=== PATIENT | male | born 1960 | race Caucasian/White ===

== ENCOUNTER 2020-07-05 17:56 | Emergency (ER) | payer OTHER ==
[2020-07-05 18:08] VITALS: RESP 18
[2020-07-05 18:31] LABS: Basophils # (A) 0.1 k/uL (0-0.2); Basophils % (A) 1 %; Eosinophils # (A) 0.2 k/uL (0-0.7); Eosinophils % (A) 2 %; HCT 38.2 % (39.0-53.0); HGB 12.9 gm/dL (13.0-17.5); Lymphocytes # (A) 2.8 k/uL (1.0-4.8); Lymphocytes % (A) 23 %; MCH 31.5 pg (25.0-35.0); MCHC 33.9 g/dL (31.0-37.0); MCV 92.9 fL (80.0-100.0); Mean Platelet Volume 7.5; Monocytes # (A) 0.8 k/uL (0-1.0); Monocytes % (A) 6 %; Neutrophils # (A) 8.2 k/uL (1.3-7.7); Neutrophils % (A) 66 %; Platelet Count 257 k/uL (150-450); RBC 4.11 m/uL (4.30-5.90); RDW 13.6 % (11.5-15.5); WBC 12.3 k/uL (3.8-10.6)
[2020-07-05 18:41] LABS: Albumin 3.7 g/dL (3.5-5.0); Calcium 8.5 mg/dL (8.4-10.2); Potassium 3.6 mmol/L (3.5-5.1); Total Bilirubin 0.3 mg/dL (0.2-1.3); Total Protein 6.7 g/dL (6.3-8.2)
[2020-07-05 18:45] LABS: Prothrombin Time 10.4 sec (9.0-12.0)
--- NOTE | 2020-07-05 18:49 | XR ---
EXAMINATION: XR chest 1V portable - 2 supine views DATE AND TIME: 07/05/2020 6:33 PM CLINICAL INDICATION: PHH; trauma TECHNIQUE: 2 supine radiographs were obtained COMPARISON: None FINDINGS: There is moderate silhouetting of the pulmonary vasculature by a fine reticular pattern of increased attenuation bilaterally and symmetrically, suggesting interstitial phase pulmonary edema. The pleural spaces are negative as seen. It is noted, however, that supine radiography cannot exclude pneumothorax or pneumoperitoneum. The cardiac silhouette is not enlarged. The remainder of the mediastinal silhouette is nonspecific. The skeletal structures and soft tissues are negative for acute findings. IMPRESSION: Findings suggest interstitial phase pulmonary edema.
--- NOTE | 2020-07-05 18:50 | XR ---
PROCEDURE: XR pelvis AP view - 3V DATE AND TIME: 07/05/2020 6:33 PM CLINICAL INDICATION: PHH; Trauma/pain TECHNIQUE: Department protocol COMPARISON: None FINDINGS: There is no fracture or malalignment. The soft tissues are unremarkable. IMPRESSION: NO ACUTE PROCESS.
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
[2020-07-05] MEDS ORDERED: HYDROmorphone 0.5 MG/0.5 ML SYRINGE IVP STA (20:15)
[2020-07-05 20:25] VITALS: BP 137/93; PULSE 84; TEMP 97.7
== END 2020-07-05 20:54 | disposition other institution (70) ==
LOC: EC 17:56
DX: S02.2XXA Fracture of nasal bones, initial encounter for closed fracture (principal); F12.90 Cannabis use, unspecified, uncomplicated; R53.1 Weakness; F10.129 Alcohol abuse with intoxication, unspecified; V19.9XXA Pedal cyclist (driver) (passenger) injured in unspecified traffic accident, initial encounter; Y93.55 Activity, bike riding; Z90.49 Acquired absence of other specified parts of digestive tract
CPT/HCPCS: 36415; 93005; 86900; 86901; 80053; 85025; 85610; 85730; 86850; 72170; 71045; 72125; 70486; 70450; 99285; 96374; G0480; J1170; 80320

== ENCOUNTER → 2021-12-26 | Outpatient (CLI) | payer OTHER ==
--- NOTE | 2021-12-27 08:43 | CT ---
EXAMINATION TYPE: CT chest w con CT DLP: 319 mGycm, Automated exposure control for dose reduction was used. DATE OF EXAM: 12/26/2021 6:06 PM COMPARISON: None CLINICAL INDICATION:Male, 61 years old with history of R16.0 LIVER MASS, Liver mass TECHNIQUE: Multiple axial images were obtained through the chest. Sagittal and coronal reformats were created for review. Contrast used:100cc mL of Isovue 370 with IV Contrast Oral contrast used: none. FINDINGS: LUNGS/ PLEURA: Scattered peripheral reticulation noted. Mild paraseptal emphysema changes. Right midd le lobe 4 mm nodule image 44 series 4. No evidence focal consolidation, pneumothorax or pleural effus ion. AIRWAY: Patent and unremarkable. HEART: Size within normal limits. MEDIASTINUM: No gross evidence of adenopathy. Right low paratracheal lymph node measuring up to 14 mm in short axis and right upper paratracheal lymph node measuring 10 mm in short axis. VASCULATURE: No aortic aneurysm. MUSCULOSKELETAL: No acute osseous abnormalities, mild multilevel disc degeneration changes are seen t hroughout the spine. No suspicious osseous lesions identified. SOFT TISSUES/LYMPH NODES: Unremarkable. LOWER NECK: No significant findings. UPPER ABDOMEN: Multiple hepatic masses are seen throughout the liver the largest in the right hepatic lobe near the dome measuring up to 4.8 cm. Masslike area within the pancreatic tail/body measuring 5 .8 x 4.2 x 5.3 cm. IMPRESSION: 1. Right middle lobe 4 mm pulmonary nodule. 2. There is a mass within the pancreatic body/tail measuring up to 5.8 cm along with multiple hepatic masses consistent with likely primary malignancy within the pancreas and metastatic disease to the l iver. 3. At least 2 mediastinal lymph nodes which are borderline enlarged. These are nonspecific correlatio n with PET/CT as clinically warranted. 4. Scattered reticulation along the peripheral lungs could represent sequela prior infection versus e kofi interstitial lung disease.
== END | disposition home or self-care (01) ==
LOC: RADCTMAIN 17:40
PROVIDERS: ATTEND Internal Medicine
DX: R16.0 Hepatomegaly, not elsewhere classified (principal); R59.0 Localized enlarged lymph nodes; R91.1 Solitary pulmonary nodule
CPT/HCPCS: 71260; Q9967

== ENCOUNTER → 2022-02-04 | Outpatient (CLI) | payer OTHER ==
--- NOTE | 2022-02-04 13:46 | XR ---
EXAMINATION TYPE: XR chest 2V DATE OF EXAM: 02/04/2022 COMPARISON: Chest x-ray July 05, 2020. CT chest December 26, 2021. HISTORY: Pancreatic neoplasm. Positive PPD skin test. TECHNIQUE: Frontal and lateral views of the chest are obtained. FINDINGS: Background chronic emphysematous and peripheral reticular fibrotic change. There is no susp icious focal air space opacity, pleural effusion, or pneumothorax seen. The cardiac silhouette size is stable and within normal limits. The osseous structures are intact. IMPRESSION: Chronic changes without acute pulmonary process.
== END | disposition home or self-care (01) ==
LOC: RADXRMAIN 13:14
PROVIDERS: ATTEND Internal Medicine
DX: C25.1 Malignant neoplasm of body of pancreas (principal); J98.4 Other disorders of lung
CPT/HCPCS: 71046

== ENCOUNTER 2022-02-10 08:37 | Day surgery (SDC) | payer OTHER ==
[2022-02-10] MEDS ORDERED: ALPRAZolam 0.5 MG TAB PO PRN (09:17)
[2022-02-10] MEDS ORDERED: HYDROmorphone 0.5 MG/0.5 ML SYRINGE IVP PRN (09:17)
[2022-02-10 09:26] LABS: Mean Platelet Volume 8.6; Platelet Count 416 k/uL (150-450)
[2022-02-10 09:38] VITALS: RESP 16
[2022-02-10 09:47] LABS: INR 1.2 (<1.2); Prothrombin Time 12.6 sec (9.0-12.0)
[2022-02-10] MEDS ORDERED: GELATIN SPONGE,ABSORB (LARGE) 1 EACH SPONGE TOPICAL STA (10:09)
--- NOTE | 2022-02-10 11:05 | US ---
EXAMINATION TYPE: US biopsy liver DATE OF EXAM: 02/10/2022 COMPARISON: NONE HISTORY: Liver mass Findings: The procedure was explained to the patient. The risks, complications, benefits, and altern atives were discussed and any questions were answered. Informed consent was obtained. Patient was p laced supine on the percent table and prepped and draped in the usual sterile fashion. All elements of maximal barrier and sterile technique utilized. Utilizing CT guidance, an 18 gauge core biopsy needle access into the left lobe of the liver is was achieved and a single 18 gauge core sample was obtained. The patient was stable throughout the proce dure and remained stable upon discharge. IMPRESSION: 1. Successful 18 gauge core biopsy of the liver for hepatic mass.
[2022-02-10 18:49] VITALS: PULSE 100
[2022-02-10 18:52] VITALS: BP 147/89
== END 2022-02-10 14:32 | disposition home or self-care (01) ==
LOC: RADPROMAIN 08:37
PROVIDERS: ATTEND Internal Medicine
DX: C80.1 Malignant (primary) neoplasm, unspecified (principal); C78.7 Secondary malignant neoplasm of liver and intrahepatic bile duct
CPT/HCPCS: 36415; 47000; 76942; 85049; 85610; 88307; 88341; 88342

== ENCOUNTER → 2022-02-28 | Outpatient (CLI) | payer OTHER ==
--- NOTE | 2022-03-03 06:20 | PE ---
EXAMINATION TYPE: PET CT fusion skull to thigh DATE OF EXAM: 02/28/2022 COMPARISON: NONE AT THIS INSTITUTION. HISTORY: Newly diagnosed pancreatic cancer. Recent abdominal CT. TECHNIQUE: Following the intravenous administration of 10.72 mCi of F-18 FDG, whole body images are performed from the skull base to the midthigh. Images are reviewed on the computer in the coronal, a xial, and sagittal planes. Reconstructed rotating images are created on independent workstation and reviewed on the computer. A localization and attenuation correction CT is performed in conjunction with the PET scan. Blood glucose level equals 97. SCAN: Initial Scan FINDINGS: SKULL BASE AND NECK: No areas of abnormal hypermetabolic uptake. CHEST, MEDIASTINUM, AND HILAR REGION: No areas of abnormal hypermetabolic uptake. ABDOMEN AND PELVIS: There is oval mass in the distal pancreatic body and tail measuring approximately 7.1 x 4.8 cm with max SUV of 3.88 on axial image 146. Hepatomegaly is present. There are multiple heterogeneous hypodense masses with abnormal hypermetabol ic uptake scattered throughout the liver. One of the largest in the anterior right hepatic lobe measu res 9.1 cm long axis axial image 136, Max SUV is 6.81 of this lesion on axial image 129. Lesion in th e deep posterior right hepatic lobe has max SUV of 7.43 on axial image 130 and measures roughly 7.2 c m in long axis. Mild nonspecific right-sided bowel uptake. Normal excretion. No additional areas of abnormal hypermet abolic uptake identified. OSSEOUS STRUCTURES: No areas of abnormal hypermetabolic uptake. OTHER CT: At least moderate underlying emphysematous changes are present. Cholecystectomy clips are seen. There is narrow neck umbilical hernia containing fat and fluid. There is moderate to large amount of free fluid in the pelvis axial image 221. Moderate to advanced disc space narrowing lumbosacral junction is present. IMPRESSION: There is distal pancreatic neoplasm with hepatic metastatic disease as detailed above.
== END | disposition home or self-care (01) ==
LOC: RADPETMAIN 13:33
PROVIDERS: ATTEND Internal Medicine
DX: C25.1 Malignant neoplasm of body of pancreas (principal); C78.7 Secondary malignant neoplasm of liver and intrahepatic bile duct
CPT/HCPCS: 78815; A9552

== ENCOUNTER 2022-05-05 17:33 | Observation (INO) | payer OTHER ==
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
[2022-05-05 18:34] LABS: Albumin 2.7 g/dL (3.5-5.0); Calcium 7.4 mg/dL (8.4-10.2); Potassium 3.7 mmol/L (3.5-5.1); Total Bilirubin 4.3 mg/dL (0.2-1.3); Total Protein 6.8 g/dL (6.3-8.2)
[2022-05-05] MEDS ORDERED: NALOXONE 0.4 MG/ML 1 ML VIAL IV PRN (18:35)
[2022-05-05 18:36] LABS: INR 1.4 (<1.2); Prothrombin Time 14.4 sec (9.0-12.0)
[2022-05-05 18:38] LABS: Anisocytosis Moderate; Basophils # (A) 0.1 k/uL (0-0.2); Basophils % (A) 0 %; Eosinophils # (A) 0.2 k/uL (0-0.7); Eosinophils % (A) 1 %; HGB 9.1 gm/dL (13.0-17.5); Lymphocytes # (A) 1.2 k/uL (1.0-4.8); Lymphocytes % (A) 4 %; MCH 32.3 pg (25.0-35.0); MCHC 32.4 g/dL (31.0-37.0); MCV 99.6 fL (80.0-100.0); Macrocytosis Moderate; Mean Platelet Volume 10.3; Monocytes # (A) 0.9 k/uL (0-1.0); Monocytes % (A) 3 %; Neutrophils % (A) 91 %; Platelet Count 190 k/uL (150-450); RBC 2.81 m/uL (4.30-5.90); RDW 20.2 % (11.5-15.5); WBC 27.5 k/uL (3.8-10.6)
[2022-05-05] MEDS ORDERED: SODIUM CHLORIDE 0.9% 1,000 ML IV SCH (18:45)
[2022-05-05 19:10] LABS: Toxic Granulation Present
[2022-05-06] MEDS ORDERED: ONDANSETRON ODT 8 MG TAB.RAPDIS PO PRN (06:32)
[2022-05-06] MEDS ORDERED: PANTOPRAZOLE 40 MG TABLET PO SCH (07:00)
[2022-05-06 07:53] VITALS: RESP 16
[2022-05-06] MEDS ORDERED: FOLIC ACID 1 MG TAB PO SCH (08:00)
[2022-05-06] MEDS: SODIUM BICARBONATE TAB 650 MG TAB PO SCH ×2 (08:41→15:19)
--- NOTE | 2022-05-06 09:02 | US ---
EXAMINATION TYPE: US abdomen limited DATE OF EXAM: 05/06/2022 COMPARISON: NONE CLINICAL HISTORY: assess for fluid pocket please. Ascites Technique bilateral ultrasound for ascites. FINDINGS: Bilateral apical fluid. Fluid pocket visualized. IMPRESSION: Moderate ascites.
[2022-05-06] MEDS: ALBUMIN HUMAN 25% 50 ML in EMPTY BAG 1 BAG IVPB SCH ×2 (11:56→13:11)
--- NOTE | 2022-05-06 12:01 | US ---
Ultrasound-guided paracentesis. DATE OF EXAM: 05/06/2022 CLINICAL HISTORY: Ascites The procedure was discussed with the patient. The risks, complications, benefits, and alternatives we re discussed and any questions were answered. Informed consent was obtained. The patient was placed s upine on the ultrasound table and prepped and draped in the usual sterile fashion. All elements of maximal barrier technique were utilized. Under ultrasound guidance, access into the right lower quadrant was obtained, via the paracentesis catheter system and direct ultrasound guidanc e. Approximately 7.5 liters of straw-colored fluid was removed. The patient was stable throughout the pr ocedure and remained stable upon discharge from Department of Radiology. IMPRESSION: Successful paracentesis under ultrasound guidance.
[2022-05-06 13:20] VITALS: BP 114/82; PULSE 98; TEMP 97.4
--- NOTE | 2022-05-06 14:49 | P.HPIM ---
History of Present Illness H&P Date: 05/06/22 This is a 61-year-old male who presented to the emergency department with abdominal distention and pain with ascites. Patient follows with Dr. Cast oncology in the outpatient setting with a past medical history of pancreatic cancer and also liver and lung mass found on CT, occasionally drinks alcohol socially and has used marijuana in the past. Patient denies smoking. Interventional radiology was consulted from the ER as there is moderate ascites noted on abdominal ultrasound and plan was for palliative paracentesis with returning home on hospice services. Patient does not want to follow with [facility] and has been following with [facility] in the outpatient setting. Case management following and this has been arranged. Patient will have paracentesis and discharge home later this afternoon. Review Of Systems: Constitutional: No fever, no chills, no night sweats. Reports weight change. Reports weakness, fatigue or lethargy. No daytime sleepiness. EENT: No headache. No blurred vision or double vision, no loss of vision. No loss of Hearing, no ringing in the ears, no dizziness. No nasal drainage or congestion. No epistaxis. No sore throat. Lungs: No shortness of breath, cough, no sputum production. No wheezing. Cardiovascular: No chest pain, no lower extremity edema. No palpitations. No paroxysmal nocturnal dyspnea. No orthopnea. No lightheadedness or dizziness. No syncopal episodes. Abdominal: Reports abdominal pain. No nausea, vomiting. No diarrhea. No constipation. No bloody or tarry stools.. No loss of appetite. Genitourinary: No dysuria, increased frequency, urgency. No urinary retention. Musculoskeletal: No myalgias. No muscle weakness, no gait dysfunction, no frequent falls. No back pain. No neck pain. Integumentary: No wounds, no lesions. No rash or pruritus. No unusual bruising. No change in hair or nails. Neurologic: No aphasia. No facial droop. No change in mentation. No head injury. No headache. No paralysis. No paresthesia. Psychiatric: No depression. No anxiety. No mood swings. Endocrine: No abnormal blood sugars. No weight change. No excessive sweating or thirst. No cold intolerance. PHYSICAL EXAMINATION: GENERAL: The patient is alert and oriented x4, thin built, cachectic, muscle wasting, ill-appearing HEENT: Pupils are round and equally reacting to light. EOMI. no scleral icterus. No conjunctival pallor. Normocephalic, atraumatic. No pharyngeal erythema. No thyromegaly. CARDIOVASCULAR: S1 and S2 muffled PULMONARY: diminished breath sounds bilaterally with no wheezing or rhonchi noted. ABDOMEN: soft. tender on exam. obese. distended, tympanic, normoactive bowel sounds. No palpable organomegaly. MUSCULOSKELETAL: No joint swelling or deformity. EXTREMITIES: No cyanosis, clubbing, or pedal edema. NEUROLOGICAL: Gross neurological examination did not reveal any focal deficits. SKIN: No rashes. 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 Will transfuse albumin prior to discharge Case management following arranging for home with hospice with [facility] and this is being arranged for home today. Patient was recently diagnosed with metastatic squamous cell carcinoma on liver biopsy and was told he was hospice appropriate by oncology Overall prognosis is poor and guarded and patient is agreeable to going home with hospice Patient will discharge today The impression and plan of care has been dictated by Shawna Donald, nurse practitioner as directed. Dr. Macho MD I have performed a history and examination and MDM of this patient, discussed the same with the dictator, and agree with the dictator's assessment and plan as written ,documented as a scribe. Based on total visit time, I have performed more than 50% of the visit. Any additional findings or plans will be noted. Past Medical History Past Medical History: No Reported History Additional Past Medical History / Comment(s): no reported history but pancreatic, liver and lung mass are found on CT and patient is being worked up for liver mass biopsy History of Any Multi-Drug Resistant Organisms: None Reported Past Surgical History: Cholecystectomy Past Anesthesia/Blood Transfusion Reactions: No Reported Reaction Smoking Status: Never smoker Medications and Allergies Home Medications Medication Instructions Recorded Confirmed Type RX: Folic Acid 1 mg PO DAILY@0800 05/05/22 05/05/22 History RX: Mirtazapine [Remeron] 15 mg PO HS@2000 05/05/22 05/05/22 History RX: Omeprazole 20 mg PO BID@0700,1700 05/05/22 05/05/22 History RX: Ondansetron Odt [Zofran ODT] 8 mg PO Q8H PRN 05/05/22 05/05/22 History RX: Sodium Bicarbonate Tab 650 mg PO QID 05/05/22 05/05/22 History Allergies Allergy/AdvReac Type Severity Reaction Status Date / Time No Known Allergies Allergy Verified 05/05/22 19:10 Physical Exam Vitals: Vital Signs Temp Pulse Pulse Resp BP BP Pulse Ox 05/06/22 07:52 98 F 102 H 16 114/82 100 05/06/22 01:36 97.8 F 105 H 20 109/76 98 05/05/22 22:54 97.9 F 104 H 20 119/86 100 05/05/22 22:00 103 H 16 123/70 100 05/05/22 21:00 104 H 16 124/90 98 05/05/22 20:00 102 H 16 113/77 100 05/05/22 17:37 97.8 F 101 H 19 120/92 100 Intake and Output 05/05/22 05/06/22 05/06/22 22:59 06:59 14:59 Other: # Voids 1 Weight 77.111 kg Results CBC & Chem 7: 05/05/22 17:58 05/05/22 17:58 Labs: Abnormal Lab Results - Last 24 Hours (Table) 05/05/22 05/05/22 05/05/22 Range/Units 17:58 17:58 17:58 WBC 27.5 H (3.8-10.6) k/uL RBC 2.81 L (4.30-5.90) m/uL Hgb 9.1 L (13.0-17.5) gm/dL Hct 28.0 L (39.0-53.0) % RDW 20.2 H (11.5-15.5) % Neutrophils # 25.0 H (1.3-7.7) k/uL PT 14.4 H (9.0-12.0) sec INR 1.4 H (<1.2) Sodium 133 L (137-145) mmol/L Chloride 97 L (98-107) mmol/L BUN 64 H (9-20) mg/dL Creatinine 2.15 H (0.66-1.25) mg/dL Glucose 106 H (74-99) mg/dL Calcium 7.4 L (8.4-10.2) mg/dL Total Bilirubin 4.3 H (0.2-1.3) mg/dL Alkaline Phosphatase 292 H (38-126) U/L Albumin 2.7 L (3.5-5.0) g/dL Assessment and Plan Time with Patient: Greater than 30
--- NOTE | 2022-05-06 14:51 | P.DS ---
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 Total time taken is greater than 35 minutes. Hospital course This is a 61-year-old male who was recently admitted under observation for palliative paracentesis. Interventional radiology evaluated the patient with moderate ascites noted on ultrasound and underwent successful paracentesis the proximally 7.5 L removed. Patient had albumin prior to discharge. Patient was told in the outpatient setting by oncology he is hospice appropriate and agreeable with this and is being arranged for the outpatient setting for home with hospice. Case management following working with [facility] and patient will be discharged today. Overall prognosis is extremely poor and guarded at this time. He Currently no reports of chest pain, shortness of breath, or palpitations. Patient is afebrile. No reports of nausea or vomiting and patient is tolerating diet. Patient will be discharged home on hospice services later today. Physical exam: Gen: This is a 7-year-old male is awake, alert and oriented 3, thin built, cachectic HEENT: Head is atraumatic, normocephalic. Pupils equal, round. Sclerae is anicteric. NECK: Supple. No JVD. No lymphadenopathy. No thyromegaly. LUNGS: Clear to auscultation. No wheezes or rhonchi. No intercostal retractions. HEART: Regular rate and rhythm. No murmur. ABDOMEN: Soft. Tympanic, distended, Bowel sounds are present. EXTREMITIES: No pedal edema. No calf tenderness. NEUROLOGICAL: Patient is awake, alert and oriented x3. Cranial nerves 2 through 12 are grossly intact. Please refer to medication reconciliation sheet for a list of medications. The impression and plan of care has been dictated by Shawna Donald, Nurse Practitioner as directed. Dr. Macho MD I have performed a history and examination and MDM of this patient, discussed the same with the dictator, and agree with the dictator's assessment and plan as written ,documented as a scribe. Based on total visit time, I have performed more than 50% of the visit. Patient Condition at Discharge: Poor Plan - Discharge Summary New Discharge Prescriptions: Continue RX: Ondansetron Odt [Zofran ODT] 8 mg PO Q8H PRN PRN Reason: Nausea RX: Omeprazole 20 mg PO BID@0700,1700 RX: Sodium Bicarbonate Tab 650 mg PO QID RX: Mirtazapine [Remeron] 15 mg PO HS@1999 RX: Folic Acid 1 mg PO DAILY@0800 Discharge Medication List RX: Folic Acid 1 mg PO DAILY@0800 05/05/22 [History] RX: Mirtazapine [Remeron] 15 mg PO HS@199905/05/22 [History] RX: Omeprazole 20 mg PO BID@0700,1700 05/05/22 [History] RX: Ondansetron Odt [Zofran ODT] 8 mg PO Q8H PRN 05/05/22 [History] RX: Sodium Bicarbonate Tab 650 mg PO QID 05/05/22 [History] Follow up Appointment(s)/Referral(s): Milind Cast MD [Primary Care Provider] - 1-2 days Patient Instructions/Handouts: Ascites (DC) Activity/Diet/Wound Care/Special Instructions: Patient will follow up with [facility] [phone]. Please call [facility] when patient is discharged: [phone] and ask for Dedra, if patient is strong enough, she will pick him up. REMOVE BANDAID FROM RIGHT SIDE OF ABDOMEN ON 05/07 (PER INTERVENTIONAL RADIOLOGY NURSE) Discharge Disposition: HOME WITH HOSPICE
== END 2022-05-06 15:24 | disposition hospice, home (50) ==
LOC: EC 17:33 → 5NMEDONC 18:35
PROVIDERS: ADMIT Internal Medicine; ATTEND Internal Medicine
DX: R60.9 Edema, unspecified (principal); C78.7 Secondary malignant neoplasm of liver and intrahepatic bile duct; E46 Unspecified protein-calorie malnutrition; Z68.21 Body mass index [BMI] 21.0-21.9, adult; D53.0 Protein deficiency anemia; M62.50 Muscle wasting and atrophy, not elsewhere classified, unspecified site; Z79.899 Other long term (current) drug therapy
CPT/HCPCS: 96365; 96366; 99284; 36415; 80053; 82150; 83690; 85025; 85610; 85730; 76705; 49083; G0378 ×2; P9047

== ENCOUNTER 2022-05-05 18:13 | Emergency (ER) | payer MEDICAID, OTHER | END 2022-05-05 18:19 | LOC: EC 18:13 | DX: Z53.9 Procedure and treatment not carried out, unspecified reason (principal) ==